=== PATIENT | male | born 2000 | race Caucasian/White ===

== ENCOUNTER 2018-07-08 12:04 | Day surgery (SDC) | payer OTHER ==
[~2018-07-08] VITALS: Ht 172.7 cm; Wt 53.7 kg
[2018-07-08] MEDS ORDERED: Omeprazole20 M1 (12:20)
[2018-07-08] MEDS ORDERED: BECL25NI (12:21)
== END 2018-07-08 13:26 | disposition home or self-care (01) ==
LOC: ORSCSDS 12:04
PROVIDERS: Internal Medicine Gastroenterology
PROC: 0DB58ZX Excision of Esophagus, Via Natural or Artificial Opening Endoscopic, Diagnostic (ICD-10-PCS; principal; 2018-07-08 13:30)
DX: K20.0 Eosinophilic esophagitis (principal); K44.9 Diaphragmatic hernia without obstruction or gangrene; E66.9 Obesity, unspecified; Z79.899 Other long term (current) drug therapy
CPT/HCPCS: 88305; J2250; J7120